=== PATIENT | female | born 2000 | race Caucasian/White ===

== ENCOUNTER 2020-11-11 15:01 | Emergency (ER) | payer BC ==
--- NOTE | 2020-11-11 15:48 | ER Document Report ---
ED Medical Screen (RME) - General Chief Complaint: Vag Bleeding, +preg <12wks Stated Complaint: VAGINAL SPOTTING/5 WKS PREG Time Seen by Provider: 11/11/20 15:44 Mode of Arrival: Ambulatory Information source: Patient Notes: 40-year-old female presented to ED for complaint of vaginal bleeding. She is 5 weeks 4 days 1 para 0. Does not know her blood type. Will get RhoGam studies as well as blood urine and ultrasound. Patient will be seen by another provider. I have greeted and performed a rapid initial assessment of this patient. A comprehensive ED assessment and evaluation of the patient, analysis of test results and completion of medical decision making process will be conducted by an additional ED providers. - Related Data Allergies/Adverse Reactions: latex Allergy (Verified 11/11/20 15:38) Penicillins Allergy (Verified 11/11/20 15:38) Past Medical History - Social History Chew tobacco use (# tins/day): No Frequency of alcohol use: None Drug Abuse: None Physical Exam - Vital signs Vitals: Temp Pulse Resp BP Pulse Ox 98.7 F 83 14 144/73 H 99 11/11/20 15:37 11/11/20 15:37 11/11/20 15:37 11/11/20 15:37 11/11/20 15:37 Course - Vital Signs Vital signs: Temp Pulse Resp BP Pulse Ox 98.7 F 83 14 144/73 H 99 11/11/20 15:37 11/11/20 15:37 11/11/20 15:37 11/11/20 15:37 11/11/20 15:37
[2020-11-11 16:25] LABS: ABSOLUTE EOSINOPHILS # (AUTO) 0.1 10^3/uL (0.0-0.6); ABSOLUTE LYMPHOCYTES (AUTO) 3.9 10^3/uL (0.5-4.7); ABSOLUTE MONOCYTES (AUTO) 0.6 10^3/uL (0.1-1.4); ABSOLUTE NEUT (AUTO) 6.3 10^3/uL (1.7-8.2); BASOPHILS % (AUTO) 0.4 % (0-2); EOSINOPHILS % (AUTO) 0.5 % (0-6); HEMATOCRIT 38.2 % (36.0-47.0); HEMOGLOBIN 13.3 g/dL (12.0-15.5); LYMPHOCYTES % (AUTO) 35.9 % (13-45); MEAN CORPUSCULAR HEMOGLOBIN 30.3 pg (27.0-33.4); MEAN CORPUSCULAR HGB CONC 34.8 g/dL (32.0-36.0); MEAN CORPUSCULAR VOLUME 87 fl (80-97); MONOCYTES % (AUTO) 5.6 % (3-13); PLATELET COUNT 352 10^3/uL (150-450); RED BLOOD COUNT 4.38 10^6/uL (3.72-5.28); RED CELL DISTRIBUTION WIDTH 12.7 % (11.5-14.0); SEGMENTED NEUTROPHILS % (AUTO) 57.6 % (42-78); TOTAL CELLS COUNTED % (AUTO) 100 %; WHITE BLOOD COUNT 10.8 10^3/uL (4.0-10.5)
[2020-11-11 16:37] LABS: APPEARANCE,URINE SLIGHTLY-CLOUDY; BILIRUBIN,URINE NEGATIVE (NEGATIVE); COLOR,URINE YELLOW; GLUCOSE, URINE NEGATIVE (NEGATIVE); KETONES,URINE NEGATIVE (NEGATIVE); LEUKOCYTE ESTERASE,URINE NEGATIVE (NEGATIVE); NITRITE,URINE NEGATIVE (NEGATIVE); PROTEIN,URINE NEGATIVE (NEGATIVE); URINE SPECIFIC GRAVITY 1.012; UROBILINOGEN,URINE NEGATIVE mg/dL (<2.0)
[2020-11-11 16:44] LABS: ALBUMIN 4.4 g/dL (3.5-5.0); ALKALINE PHOSPHATASE 73 U/L (38-126); ANION GAP 6 (5-19); ASPARTATE AMINO TRANSFERASE 22 U/L (14-36); BILIRUBIN,TOTAL 0.7 mg/dL (0.2-1.3); BLOOD UREA NITROGEN 9 mg/dL (7-20); CALCIUM 9.6 mg/dL (8.4-10.2); CARBON DIOXIDE 29 mmol/L (22-30); CHLORIDE 104 mmol/L (98-107); GLUCOSE 79 mg/dL (75-110); POTASSIUM 4.1 mmol/L (3.6-5.0); TOTAL PROTEIN 7.7 g/dL (6.3-8.2)
--- NOTE | 2020-11-11 16:52 | RADIOLOGY REPORT (SQ) ---
EXAM DESCRIPTION: U/S OB TRANSVAGINAL W/O DOP IMAGES COMPLETED DATE/TIME: 11/11/2020 4:36 pm REASON FOR STUDY: 5w4d g1 vaginal bleed COMPARISON: None. TECHNIQUE: Transvaginal static and realtime grayscale images acquired of the pelvis. Additional neymar cted spectral and color Doppler images recorded. All images stored on PACs. bHCG: Pending. CLINICAL DATES: LMP 10/03/2020. The EGA based on LMP 5 weeks 4 days. JUAN based on LMP 07/10/2021. LIMITATIONS: None. FINDINGS: UTERUS: The uterus measures 9 x 3 x 4 cm. The echotexture of the myometrium is homogeneou s. There is no intrauterine gestational sac. CERVICAL LENGTH: 3 cm. Closed. RIGHT ADNEXA: The right ovary measures 3 x 2 x 2 cm and on Doppler there is intact color flow within the ovarian stroma. The echogenic structure within the right ovary could represent a dermoid cyst. There is no adnexal mass. LEFT ADNEXA: The left ovary measures 3 x 2 x 2 cm and on Doppler there is intact color flow within th e ovarian stroma. There is no adnexal mass. FREE FLUID: There is a trace amount of free fluid in the cul de sac. OTHER: No other findings. IMPRESSION: NO EVIDENCE OF AN INTRAUTERINE GESTATION. IF THE PATIENT HAS A POSITIVE URINE TEST THE ABSENCE OF AN INTRAUTERINE GESTATIONAL SAC COULD REPRESENT AN EARLY INTRAUTERINE , A NONVISUALIZED ECTOPIC OR A FAILED INTRAUTERINE . CORRELATION WITH SERIAL BETA HCGS IS RECOMMENDED. ECHOGENIC STRUCTURE WITHIN THE RIGHT OVARY THAT COULD REPRESENT A DERMOID CYST. TECHNICAL DOCUMENTATION: JOB ID: [id number] [employer]- All Rights Reserved rev-04/08 Reading location - IP/workstation name: [email or web address]
--- NOTE | 2020-11-11 17:32 | ER Document Report ---
ED General - General Chief Complaint: Vag Bleeding, +preg <12wks Stated Complaint: VAGINAL SPOTTING/5 WKS PREG Time Seen by Provider: 11/11/20 15:44 Mode of Arrival: Ambulatory - [facility] Notes: 20-year-old female to the emergency department with complaints of vaginal bleeding and lower abdominal cramping in the setting of early . She states that this is her first . She states that her last menstrual period was at the beginning of September. She states that she started to notice some spotting after having sexual intercourse with her last night. She states that she then continued to bleed today. She states not particularly heavy and the cramping is not significant. She states that the cramping is less than her normal menstrual cramping. Denies any nausea or vomiting, fevers or chills, headache, back pain, urinary symptoms. She has no concern for STD. She did make an appointment with a [place] [employer] TEAM LEAD today but her appointment is not until November 19. - Related Data Allergies/Adverse Reactions: latex Allergy (Verified 11/11/20 15:38) Penicillins Allergy (Verified 11/11/20 15:38) Past Medical History - General Information source: Patient - Social History Smoking Status: Never Smoker Chew tobacco use (# tins/day): No Frequency of alcohol use: None Drug Abuse: None Family History: Reviewed & Not Pertinent Patient has homicidal ideation: No Review of Systems - Review of Systems Constitutional: denies: Chills, Fever EENT: No symptoms reported Cardiovascular: denies: Chest pain, Palpitations, Dizziness, Lightheaded, Edema Respiratory: denies: Cough, Short of breath Gastrointestinal: Abdominal pain. denies: Diarrhea, Nausea, Vomiting Genitourinary: denies: Frequency, Flank pain Female Genitourinary: See HPI, , Vaginal bleeding Musculoskeletal: No symptoms reported Skin: No symptoms reported Neurological/Psychological: No symptoms reported -: Yes All other systems reviewed and negative Physical Exam - Vital signs Vitals: Temp Pulse Resp BP Pulse Ox 98.7 F 83 14 144/73 H 99 11/11/20 15:37 11/11/20 15:37 11/11/20 15:37 11/11/20 15:37 11/11/20 15:37 Interpretation: Normal - Notes Notes: PHYSICAL EXAMINATION: GENERAL: Well-appearing, well-nourished and in no acute distress. HEAD: Atraumatic, normocephalic. EYES: Pupils equal round and reactive to light, extraocular movements intact, sclera anicteric, conjunctiva are normal. ENT: nares patent, oropharynx clear without exudates. Moist mucous membranes. NECK: Normal range of motion, supple without lymphadenopathy LUNGS: Breath sounds clear to auscultation bilaterally and equal. No wheezes rales or rhonchi. HEART: Regular rate and rhythm without murmurs ABDOMEN: Soft, nontender, normoactive bowel sounds. No guarding, no rebound. No masses appreciated. No CVA tenderness EXTREMITIES: Normal range of motion, no pitting or edema. No cyanosis. NEUROLOGICAL: No focal neurological deficits. Moves all extremities sponta neously and on command. PSYCH: Normal mood, normal affect. SKIN: Warm, Dry, normal turgor, no rashes or lesions noted. Course - Re-evaluation Re-evalutation: 11/11/20 Impression: Threatened miscarriage in early . Patient with an hCG level of 31. Ultrasound did not show an IUP. Thus, this could be an early , possible miscarriage, possible ectopic . Her blood type is O+. I have discussed with her the 3 possibilities that could remain to cause her vaginal bleeding. I will have her return in 2 days for repeat hormone. She is to return sooner if she has worsening heavy bleeding or passing out or worsening pain. Encouraged her to use Tylenol as needed for pain. Also encouraged pelvic rest with no sex, douching, tampons. Have also encouraged her to call her LOGISTICS TEAM LEAD and let them know what is happening and see if they will move up her appointment to a sooner timeline. Patient agrees with the plan - Vital Signs Vital signs: Temp Pulse Resp BP Pulse Ox 98.7 F 83 14 144/73 H 99 11/11/20 15:37 11/11/20 15:37 11/11/20 15:37 11/11/20 15:37 11/11/20 15:37 - Laboratory Results Result Diagrams: 11/11/20 16:01 11/11/20 16:01 Laboratory Results Interpreted: 11/11/20 11/11/20 11/11/20 16:01 16:01 16:01 WBC 10.8 H Beta HCG, Quant 31.31 H Urine Blood LARGE H Critical Laboratory Results Reviewed: No Critical Results - Radiology Results Critical Radiology Results Reviewed: No Critical Results Discharge - Discharge Clinical Impression: Threatened miscarriage in early , Vaginal bleeding in Condition: Stable Disposition: HOME, SELF-CARE Instructions: Threatened Miscarriage ([facility]), Bleeding During Early ([facility]) Additional Instructions: Please return in 2 days for repeat hormone. Continue to monitor your bleeding. Please return sooner if you have heavy bleeding, passing out, chest pain, any other concerning symptoms. You may take Tylenol for your lower abdominal pain and apply warm compresses to it. Please practice pelvic restno sex, no douching, no tampons. Today your hormone was 31.31 and your blood type was O+. Your ultrasound did not show an intrauterine gestation. This could be due to early , ectopic , or possible miscarriage. Is imperative that you return for your repeat hormone testing so that we can further evaluate for these 3 different possibilities. Please call your [place] [employer] and let them know about our plan and see if they would schedule you for a sooner appointment with them. Forms: Return to Work
[2020-11-11 18:23] VITALS: BP 128/71
== END 2020-11-11 18:23 | disposition home or self-care (01) ==
LOC: ER 15:01
DX: O20.0 Threatened abortion (principal); R10.30 Lower abdominal pain, unspecified; Z3A.01 Less than 8 weeks gestation of pregnancy; Z91.040 Latex allergy status; Z88.0 Allergy status to penicillin
CPT/HCPCS: 36415; 76817; 80053; 81001; 84702; 85025; 86900; 86901; 99284

== ENCOUNTER 2020-11-13 07:23 | Emergency (ER) | payer BC ==
[2020-11-13 07:29] VITALS: BP 143/78
--- NOTE | 2020-11-13 08:46 | ER Document Report ---
ED General - General Chief Complaint: Abnormal Lab Results Stated Complaint: MEDICAL COMPLAINT Time Seen by Provider: 11/13/20 08:12 Notes: CHIEF COMPLAINT: Recheck of labs HPI: History is obtained from the patient and the records. 20-year-old female presented 2 days ago for vaginal bleeding reports still having some spotting has an appointment with her AUDIT DIRECTOR at [place] today but they told her to come back to the emergency department where she had her original beta-hCG drawn to have it rechecked before coming into the office today. Patient reports she is no longer having any cramping or significant bleeding but still has occasional spotting. ROS: See HPI - all other systems were reviewed and are otherwise negative Constitutional: no fever GI: no vomiting, no diarrhea, no abdominal pain : no dysuria Integumentary: no rash Allergy: no hives MEDICATIONS: I agree with the patient medications as charted by the RN. ALLERGIES: I agree with the allergies as charted by the RN. PAST MEDICAL HISTORY/PAST SURGICAL HISTORY: Reviewed and agree as charted by RN. SOCIAL HISTORY: Reviewed and agree as charted by RN. FAMILY HISTORY: No significant familial comorbid conditions directly related to patient complaint EXAM: Reviewed vital signs as charted by RN. CONSTITUTIONAL: Alert and oriented and responds appropriately to questions. Well-appearing; well-nourished HEAD: Normocephalic; atraumatic EYES: Conjunctivae clear, sclerae non-icteric ENT: normal nose; no rhinorrhea; moist mucous membranes NECK: Supple without meningismus RESP: Normal chest excursion without splinting or tachypnea ABD/GI: non-distended BACK: The back appears normal EXT: Normal ROM in all joints; no cyanosis, no effusions, no edema SKIN: Normal color for age and race; warm; dry; good turgor; no acute lesions noted NEURO: Moves all extremities equally; Motor and sensory function intact PSYCH: The patient's mood and manner are appropriate. Grooming and personal hygiene are appropriate. MDM: 20-year-old female presenting for recheck of her beta hCG labs per the recommendation of her AUDIT DIRECTOR. When I went in to evaluate the patient she indicates that she wishes to leave AGAINST MEDICAL ADVICE. Patient states that she got a call from the AUDIT DIRECTOR office that states they have now called in an order for an outpatient lab test to be done and she no longer wants to have the lab test done here. She is declining further exam or testing at this time. I would note to dictate the patient's discharge notes and patient left prior to receiving them per nursing. - Related Data Allergies/Adverse Reactions: latex Allergy (Verified 11/11/20 15:38) Penicillins Allergy (Verified 11/11/20 15:38) Past Medical History - Social History Smoking Status: Never Smoker Chew tobacco use (# tins/day): No Drug Abuse: None Family History: Reviewed & Not Pertinent Physical Exam - Vital signs Vitals: Temp Pulse Resp BP Pulse Ox 98.4 F 95 16 143/78 H 100 11/13/20 07:25 11/13/20 07:25 11/13/20 07:25 11/13/20 07:25 11/13/20 07:25 Course - Vital Signs Vital signs: Temp Pulse Resp BP Pulse Ox 98.4 F 95 16 143/78 H 100 11/13/20 07:25 11/13/20 07:25 11/13/20 07:25 11/13/20 07:25 11/13/20 07:25 - Laboratory Results Critical Laboratory Results Reviewed: No Critical Results - Radiology Results Critical Radiology Results Reviewed: No Critical Results Discharge - Discharge Clinical Impression: Vagina bleeding, Abnormal laboratory test Condition: Stable Disposition: HOME, SELF-CARE Additional Instructions: Follow-up with your AUDIT DIRECTOR today as scheduled for further evaluation. You have declined lab testing in the emergency department today
== END 2020-11-13 08:53 | disposition home or self-care (01) ==
LOC: ER 07:23
DX: O26.859 Spotting complicating pregnancy, unspecified trimester (principal); Z3A.00 Weeks of gestation of pregnancy not specified; Z91.041 Radiographic dye allergy status; Z88.0 Allergy status to penicillin; Z53.29 Procedure and treatment not carried out because of patient's decision for other reasons
CPT/HCPCS: 99282

== ENCOUNTER → 2020-11-13 | Outpatient (CLI) | payer BC | LOC: OD 09:31 | PROVIDERS: ATTEND Obstetrics & Gynecology | DX: O20.0 Threatened abortion (principal) | CPT/HCPCS: 36415; 84702 ==